=== PATIENT | male | born 1970 | race Caucasian/White ===

== ENCOUNTER 2018-04-28 20:59 | Emergency (ER) | END 2018-04-28 23:20 | disposition home or self-care (01) ==

== ENCOUNTER 2018-05-05 13:53 | Emergency (ER) | END 2018-05-05 16:49 | disposition home or self-care (01) ==

== ENCOUNTER 2018-05-11 18:20 | Emergency (ER) | END 2018-05-12 03:45 | disposition short-term general hospital (02) ==